=== PATIENT | male | born 1970 | race Caucasian/White ===

== ENCOUNTER 2021-12-12 21:32 | Emergency (ER) | payer OTHER ==
[~2021-12-12] VITALS: Ht 180.3 cm; Wt 81.7 kg
[2021-12-12] MEDS ORDERED: ALBU90OI INH (22:41)
[2021-12-12] MEDS ORDERED: Ventolin/Prove6.7 GM (22:42)
[2021-12-12] MEDS ORDERED: IPRAT-ALBUT 0.5-3 ML (22:42)
[2021-12-12] MEDS ORDERED: PRED20 PO (22:42)
== END 2021-12-12 23:27 | disposition home or self-care (01) ==
LOC: ER 21:32
DX: J45.901 Unspecified asthma with (acute) exacerbation (principal); J44.9 Chronic obstructive pulmonary disease, unspecified; Z87.891 Personal history of nicotine dependence
CPT/HCPCS: 71046; 94644; 94664; J1100